=== PATIENT | female | born 1995 | race Caucasian/White ===

== ENCOUNTER 2021-08-21 12:09 | Outpatient (CLI) | payer OTHER, SELFPAY ==
--- NOTE | ~2021-08-21 | US_ITS ---
US OB limited w BPP DATE: 08/21/2021 15:50 INDICATION: decelerations. TECHNIQUE: Real-time imaging and Doppler analysis COMPARISON: None FINDINGS: Live mar intrauterine gestation, fetus in longitudinal lie, vertex presentation. Feta l heart rate of 135 bpm. Anterior placenta. Amniotic fluid index measures 10.6 cm, within lower normal range. (5th percentile CARMEN is 7.3 cm. 95th percentile CARMEN is 23.9 cm.) BIOPHYSICAL PROFILE reported by furniture technician: breathin out of 2 movement: 2 out of 2 tone: 2 out of 2 Amniotic fluid pocket: 2 out of 2 Total score: 8 out of 8 IMPRESSION: Normal biophysical profile score of 8 out of 8 CARMEN measures 10.6 cm, within lower limits of normal Reviewed, dictated and finalized at [facility]. Reviewed, dictated and finalized at [facility]. L [employer]INDOW [employer]CREEN [employer]SEM[employer]ER
--- NOTE | 2021-08-21 12:30 | PC.NURSE ---
Prolong decel noted around 1230 on tracing. Fht's down to the 90's at its lowest point for 2 minutes. Spontaneous return to baseline was noted.
--- NOTE | 2021-08-21 13:00 | PC.NURSE ---
Second prolong decel noted, fht's down to the 110 for 90 seconds with return to baseline.
[2021-08-21 14:12] VITALS: BP 110/79; PULSE 87
[2021-08-21 14:16] VITALS: BP 109/79; PULSE 90
[2021-08-21 14:31] VITALS: BP 113/78; PULSE 86
[2021-08-21 14:46] VITALS: BP 114/68; PULSE 80
[2021-08-21 15:01] VITALS: BP 114/74; PULSE 84
[2021-08-21 16:02] VITALS: BP 113/70; PULSE 94
--- NOTE | 2021-08-21 16:06 | PC.NURSE ---
Addendum entered by Sheila Gould RN 08/21/21 16:11: MD was notified at 1350 Original Note: Dr Canales notified of prolonged decel x2, reactive tracing after decels. Orders for monitoring and US. If CARMEN and BPP WNL may dc home.
--- NOTE | 2021-08-21 16:27 | PC.NURSE ---
Addendum entered by Sheila Gould RN 08/21/21 16:29: at 1513 Original Note: Fht's 130's, reactive. no further decels noted.
== END 2021-08-21 16:02 | disposition home or self-care (01) ==
LOC: ANHOBOP 14:04 → ANHLDR 14:05
PROVIDERS: Visit Provider Obstetrics & Gynecology
DX: O41.8X90 Other specified disorders of amniotic fluid and membranes, unspecified trimester, not applicable or unspecified (principal)
CPT/HCPCS: 59025; 76815; 76819; 84112; 99199

== ENCOUNTER 2021-08-23 10:14 | Inpatient (IN) | payer OTHER, SELFPAY ==
[2021-08-23] VITALS (114 sets, daily range): BP systolic 82–124; BP diastolic 30–87; PULSE 61–128; RESP 18; TEMP 36.3–37.1; O2SAT 92–100; BMI 34.6
--- OUTSIDE RECORDS SUMMARY | 2021-08-23 10:20 | XMS_ITS ---
:1995 Author Care Team Providers Name Role Phone BRODIE SALAZAR MD Primary Care Provider [phone] Allergies Code Code System Name Reaction Severity Status Onset Septra Nausea ? Active ? Medications Name Status Start Date Stop Date ? ? amoxicillin 875 mg tablet Unknown ? Not av ailable TK 1 T PO BID azithromycin 500 mg tablet Completed ? 10/25 bupropion HCl 100 mg tablet Completed ? 04/23 TK 1 T PO BID ciprofloxacin 500 mg tablet Completed ? 06/2016 TK 1 T PO Q 12 H FOR 7 DAYS clindamycin HCl 300 mg capsule Unknown ? N ot available TK ONE C PO TID Cytotec 100 mcg tablet Completed ? 4 Take 2 tablets by oral route as directed for 1 day. Depo-Provera 150 mg/mL intramuscular suspension Unknown ? Not available Inject 1 mL every 3 months by intramuscular route. dicloxacillin 250 mg capsule Completed ? 05/2018 Take 1 capsule every 6 hours by oral route for 7 days. doxycycline hyclate 100 mg capsule Completed ? 02/16/2019 fluconazole 150 mg tablet Completed ? 2017 fluoxetine 10 mg capsule Unknown ? Not germania ilable TK 1 C PO QD fluoxetine 20 mg capsule Unknown ? Not germania ilable TK ONE C PO D fluticasone propionate 50 mcg/actuation nasal spray,suspension U nknown ? Not available SPRAY ONE SPRAY INTO EACH NOSTRIL D hydrocortisone 2.5 % topical ointment Unknown ? Not available hydroxyzine HCl 25 mg tablet Unknown ? Not available TK 1 T PO Q 6 H PRF ITCHING
--- OUTSIDE RECORDS SUMMARY | 2021-08-23 10:20 | XMS_ITS ---
:1995 Author Care Team Providers Name Role Phone [facility] Primary Care Provider Unavailable Allergies Code Code System Name Reaction Severity [...] day. Depo-Provera 150 mg/mL intramuscular suspension Unknown 03/17/2013 Not available Inject 1 mL every 3 months by intramuscular route. dicloxacillin 250 mg capsule Completed ? 05/2018 Take 1 capsule every 6 hours by oral route for 7 days. doxycycline hyclate 100 mg capsule Completed ? 02/16/2019 fluconazole 150 mg tablet Completed ? 2020 TAKE 1 TABLET BY MOUTH EVERY DAY fluoxetine 10 mg capsule Unknown ? Not germania ilable TK 1 C PO QD fluoxetine 20 mg capsule Unknown ? Not germania ilable TK ONE C PO D fluticasone propionate 50 mcg/actuation nasal spray,suspension U nknown ? Not available SPRAY ONE SPRAY INTO EACH NOSTRIL D hydrocortisone 2.5 % topical Unknown ? Not available ointm
[2021-08-23] MEDS: AMPICILLIN 2 GM/NS 100 ML 2 GM/100 ML BAG IVPB (10:45)
[2021-08-23] MEDS: LACTATED RINGERS 1,000 ML 125 ML IV CONT ×2 (10:45→11:48)
[2021-08-23 10:46] LABS: Basophils Percent Auto 0.3 % (0.2-1.2); Eosinophils Percent Auto 0.2 % (0-4.4); Hematocrit 37.1 % (37.0-47.0); Hemoglobin 12.6 g/dL (12.0-15.0); Immature Granulocyte Absolute 0.08 K/mm3 (0.00-0.031); Immature Granulocyte Percent A 0.6 % (0-0.5); Lymphocytes Absolute Auto 2.48 K/mm3 (0.9-3.2); Lymphocytes Percent Auto 20.1 % (18.3-44.2); Mean Corpuscular Hemoglobin 31.3 pg (26-34); Mean Corpuscular Volume 92.1 fl (80-100); Mean Platelet Volume 10.1 fl (7.4-10.4); Monocytes Absolute Auto 0.6 K/mm3 (0.1-0.6); Monocytes Percent Auto 4.9 % (2.6-8.5); Neutrophils Absolute Auto 9.1 K/mm3 (1.3-6.7); Neutrophils Percent Auto 73.9 % (45.5-73.1); Platelet Count Result 312 k/mm3 (150-375); Red Blood Count 4.03 M/mm3 (4.2-5.4); Red Cell Distribution Width 12.4 % (11.5-14.5); White Blood Count 12.3 K/mm3 (4.5-10.0)
--- NOTE | 2021-08-23 11:14 | WPDANESEPPF ---
Anes - Initial Pre Proc Eval Date/Time: 08/23/21 11:14 Surgeon: Raymond Canales MD Pre Op Diagnosis: labor Patient Data Age: 26 Gender: F Height: Weight: Last Vital Signs Pulse 88 08/23/21 11:13 BP 96/69 L 08/23/21 11:13 Pulse Ox 99 08/23/21 11:14 Allergies Allergy/AdvReac Type Severity Reaction Status Date / Time cephalexin Allergy Intermediate Vomiting Verified 08/20/21 10:23 amoxicillin Allergy Unknown VOMITING Verified 08/20/21 10:23 Sulfa (Sulfonamide Allergy Unknown Nausea Verified 08/20/21 10:23 Antibiotics) sulfamethoxazole Allergy Unknown Unknown Verified 08/20/21 10:23 trimethoprim Allergy Unknown Unknown Verified 08/20/21 10:23 Home Medications Medication Instructions Recorded Confirmed Type vitamins-iron fumarate 65 1 tablet PO DAILY 07/13/21 08/10/21 History mg iron-folic acid 1 mg tablet Laboratory Tests 08/23/21 08/23/21 10:39 10:39 WBC 12.3 K/mm3 H K/mm3 (4.5-10.0) RBC 4.03 M/mm3 L M/mm3 (4.2-5.4) Hgb 12.6 g/dL g/dL (12.0-15.0) Hct 37.1 % % (37.0-47.0) MCV 92.1 fl fl (80-100) MCH 31.3 pg pg (26-34) MCHC 34.0 g/dl g/dl (32-36) RDW 12.4 % % (11.5-14.5) Plt Count 312 k/mm3 k/mm3 (150-375) MPV 10.1 fl fl (7.4-10.4) Immature Gran % (Auto) 0.6 % H % (0-0.5) Neut % (Auto) 73.9 % H % (45.5-73.1) Lymph % (Auto) 20.1 % % (18.3-44.2) [place] % (Auto) 4.9 % % (2.6-8.5) Eos % (Auto) 0.2 % % (0-4.4) Baso % (Auto) 0.3 % % (0.2-1.2) Lymph # (Auto) 2.48 K/mm3 K/mm3 (0.9-3.2) [place] # (Auto) 0.6 K/mm3 K/mm3 (0.1-0.6) Eos # (Auto) 0.0 K/mm3 K/mm3 (0-0.3) Baso # (Auto) 0.0 K/mm3 K/mm3 (0.0-0.1) Abs Immat Gran (auto) 0.08 K/mm3 H K/mm3 (0.00-0.031) Absolute Neuts (auto) 9.1 K/mm3 H K/mm3 (1.3-6.7) Absolute Nucleated RBC 0.0 K/mm3 K/mm3 (0.0-0.012) Nucleated RBC % 0.0 % % (0.0-0.2) RPR Pending Patient hx anesthesia problems: none Family hx anesthesia problems: none Results Review: All pre-operative results and documents have been reviewed as part of the pre-operative evaluation. [facility] Past Medical History Medical History Encounter for insertion of mirena IUD 10/06/13 Encounter for IUD removal 10/21/16 Nexplanon insertion 08/10/18 07/23/10 Nexplanon removal 12/09/18 07/01/12 Surgical History Surgical History History of biopsy 05/23/17 vulvar bx--polypoid molluscum contagiosum History of tonsillectomy Family History Family History Mother Hypertension Lupus erythematosus Celiac disease Social History Social History Substance use: never Spiritual care concerns: No Anes - Eval Final PreProcedure Day of Procedure 08/23/21 11:14 Patient weight: overweight ASA classification: II Anesthesia type and monitoring: regional epidural and standard monitoring Results Review: All pre-operative results and documents have been reviewed as part of the pre-operative evaluation. Informed Consent: The patient's anesthetic plan and its attendant risks and benefits were discussed with the patient/family/POA. Questions were solicited and answers provided to the satisfaction of the patient/family/POA.
[2021-08-23 11:40] LABS: Rapid Plasma Reagin Non-Reactive (NonReactive)
--- NOTE | 2021-08-23 11:53 | LDADM ---
This patient, Margo Vieira, was admitted to Labor/Delivery/Recovery 107 on 08/23/21 at 10:14. Plans for labor, pain management and were discussed with patient. Patient/family oriented to hospital policies and general routines including ID bracelet, bed and alarms, visiting hours, pain management, procedures, bathroom and other care routines, personal items, smoking policy, room service/diet and guest tray routines, infant security routines, and visiting hours. Patient/Family are encouraged to report perceived risks to care and to ask questions if they do not understand what they are told or what they should do. See OBIX for further documentation.
[2021-08-23] MEDS: AMPICILLIN 1 GM/NS 50 ML 1 GM/50 ML BAG IVPB (14:42)
[2021-08-23] MEDS: OXYTOCIN 30 UNITS/NS 500 ML 30 UNITS/500 ML BAG IV CONT (14:43)
--- NOTE | 2021-08-23 16:44 | WPDOBADMIT ---
Obstetrics - Admit Note Admission Note: record reviewed. No pertinent additions to the history and/or any subsequent changes in the physical findings that are not consistent with the expected course of the were found. Additions to the history and/or subsequent changes in the physical findings follow. None.
--- NOTE | 2021-08-23 16:44 | WPDHPUPDATE1 ---
History and Physical Update Update Date/Time: 08/23/21 16:44 History and Physical has been reviewed, including an updated exam of the patient. There are NO changes in the patient's condition. Risks, benefits, and alternatives have been discussed and questions answered. Patient agrees to proceed with procedure.
--- NOTE | 2021-08-23 16:45 | PM.OBPRVD ---
OB - Delivery Note Procedure Events: Positive Group B Strep (GBS) Induction method: None Delivery augmentation: Pitocin Delivery monitor: External FHT and External Uterine Route of delivery: Episiotomy description: None Laceration Description: None Specimen: No Quantitative Blood Loss (ml): 350 Disposition: Floor Narrative: Her draped usual manner for this procedure. Maternal expulsive efforts delivered vertex. The right arm also delivered prior to the left shoulder. But once the right arm did deliver the left shoulder delivered without difficulty. Rest of baby was delivered cord clamped cut placenta delivered spontaneously. Cervix vagina vulva were inspected no lacerations or tears. Uterus was well contracted. At this point procedure was considered terminated. [place] Baby Weeks of gestation at delivery: 38 gender: Male Weight (pounds): 7 Weight (ounces): 14 presentation: compound ( Right arm delivered along with vertex.) Placenta delivery description: Spontaneous Cord Vessel Description: 3 Vessels score one minute: 8 score five minutes: 9 AMG Delivery Billing Delivery Delivery: Delivery Charge
[2021-08-23] MEDS: OXYTOCIN 30 UNITS/NS 500 ML 30 UNITS/500 ML BAG 125 UNITS IV CONT (17:16)
--- NOTE | 2021-08-23 19:08 | OBPPTRN ---
Patient transferred to post room #291 via W/C. Support person present. Oriented to unit, room, information board, rooming in, admission packet and security measures. Patient verbalizes understanding.
[2021-08-23] MEDS: SIMETHICONE 80 MG TAB.CHEW PO (20:34)
[2021-08-24 00:02] VITALS: BP 102/62; PULSE 75; RESP 18; TEMP 36.8; O2SAT 100
[2021-08-24] MEDS: IBUPROFEN 600 MG TABLET PO ×2 (03:37→17:02)
[2021-08-24 03:50] VITALS: BP 103/70; PULSE 83; RESP 16; TEMP 36.7
[2021-08-24 04:09] LABS: Hematocrit 33.8 % (37.0-47.0); Hemoglobin 11.2 g/dL (12.0-15.0)
[2021-08-24] MEDS: MULTIVIT/MIN/PREN/FOL AC/IRON TABLET 1 TAB PO (08:44)
[2021-08-24] MEDS: WITCH HAZEL 40 PADS 1 PAD TOPICAL (08:44)
[2021-08-24 08:45] VITALS: BP 108/70; PULSE 86; RESP 18; TEMP 36.5; O2SAT 100
[2021-08-24 12:02] VITALS: BP 108/66; PULSE 86; RESP 18; TEMP 36.9; O2SAT 99
--- NOTE | 2021-08-24 12:35 | P.DS_ITS ---
DS: Admitting Diagnosis Discharge Date 08/24/2021 Admitting Diagnosis OB - DS: Summary OB Procedures : None OB Procedures Intrapartum: Spontaneous Vag Delivery OB Procedures: : None Time Spent with Patient Time attestation: Total time spent providing and/or coordinating discharge services: DS: Data Data Completed and Pending Labs on day of discharge: Labs from last 24 hours 08/24/21 03:51 Hgb 11.2 L Hct 33.8 L Discharge Plan Discharge Discharging Clinician: Raymond Canales Anticipated Discharge Date/Time: 08/24/21 12:36 Patient Disposition: Home, Self-Care Activity: as tolerated Diet: as tolerated Patient Instructions: Antibiotic Form Stand Alone Forms: General Discharge Information Follow-up/Referrals: Raymond Canales MD [Physician] - 3 Weeks Discharge Medications: New ibuprofen 600 mg Tablet 600 mg PO Q6H PRN (Reason: Cramping) Qty: 30 RF: 0 Continued vit-iron fum-folic ac 65 mg iron- 1 mg tablet 1 tablet PO DAILY RF: 0 Date of admission: 08/23/21 10:14 Primary Care Provider: PHYSICIAN,COMMISSION AGENT [employer] Admitting Provider: Raymond Canales Attending physician on admission: Raymond Canales Condition: Stable
--- NOTE | 2021-08-24 13:08 | PC.NURSE ---
0840 - Introductions were made and patient consulted to assess needs related to . Mother led conversation with her experience with feeding baby so far. Mother works well with her infant. Reviewed good handwashing when working with , breast, nipples and how to protect the nipples with a deep latch. Primary RN here to take for a doctor assessment in the nursery. [id number] Mother continue the start of an earlier conversation. RN encouraged the benefits of skin to skin, responding to feeding cues for on demand feedings, frequencies of feeding to be 8-12 times in 24 hours (approximately 2-3 hours), duration of feedings, milk production, intake/output feeding sheet and signs of adequate intake. Discussed stimulating infant with skin to skin, hand expressing colostrum, touch and talking to infant to encourage eating at the breast. Reviewed positioning and alignment, supporting breast, off-centered (asymmetrical latch) and leading with the chin with big open wide gape. Infant latched optimally to the right breast in football position without discomfort to mother. Education given to mother of how to visualize suck/swallow ratios and drinking at the breast. was not able to maintain latch without discomfort to mother. Nipple care, comfort and healing with warm, wet washcloth to rinse breast and leave to air-dry. Resources used to facilitate learning were used from the visual handout/ tool/mom and baby guide. Mother voiced understanding responding to feeding cues, may need to stimulating approximately 2-3 hours from the start of the last feeding, calling for assistance if the infant does not latch or there discomfort . Reported to primary RN.
[2021-08-24] MEDS: TETANUS,DIPHTHERIA,AC PERTUSSIS ADULT (0.5 ML) BOOSTRIX IM (14:05)
--- NOTE | 2021-08-24 17:00 | PC.NURSE ---
Patient received instructions to view the discharge video Mother & Baby Care, The First Two Weeks . Patient was given the opportunity and encouraged to ask questions. Patient verbalized understanding of information shared and has been given the mother/baby guide for home reference.
[2021-08-27 11:48] VITALS: BP 110/72; PULSE 75; RESP 20; TEMP 37.1; O2SAT 99
== END 2021-08-24 19:00 | disposition home or self-care (01) | DRG 560 ==
LOC: ANHLDR 10:17 → ANHOB2 19:24
PROVIDERS: Admitting Provider Obstetrics & Gynecology; Visit Provider Obstetrics & Gynecology
DX: O99.824 Streptococcus B carrier state complicating childbirth (principal); Z37.0 Single live birth; Z3A.38 38 weeks gestation of pregnancy; O32.6XX0 Maternal care for compound presentation, not applicable or unspecified; O36.8330 Maternal care for abnormalities of the fetal heart rate or rhythm, third trimester, not applicable or unspecified
CPT/HCPCS: 36415; 85014; 85018; 85025; 86592; 86850; 86900; 86901; 90715; A9270; J0290; J2590; J2795; J7120

== ENCOUNTER 2021-08-27 13:03 | Outpatient (RCR) | payer OTHER, SELFPAY ==
--- NOTE | 2021-08-27 14:05 | PC.NURSE ---
Addendum entered by Kaity Schulte RN 08/27/21 14:30: Mother received a diagnosis of mastitis in the right breast yesterday. She has an antibiotic that needs to be filled and RN instructed her to start taking the medication. Mother voiced understanding of when to call her provider or the ICP. Mother plans on , then pumping the right breast to empty the milk supply along with massage during . A follow-up phone call will be made 08/28/2021. Original Note: 1216 - 1300 Consulted with patient to assess needs related to . Mother led conversation with her experience with feeding baby so far. Mother works well with her infant. Significant history related to is mother's anxiety and bilateral nipple piercing. Mother denies any mental health concerns at this time and states she is coping well with exception to the first night at home. She has recovered from frustration and tears. Reviewed baby blues vs PPD. Mother voiced understanding of when to call for assistance. Reviewed good handwashing when working with , breast, nipples and how to protect the nipples with a deep latch. Encouraged understanding the benefits of skin to skin, responding to feeding cues, frequencies of feeding 8-12 times in 24 hours (approximately 2-3 hours), duration of feedings, milk production, intake/output feeding sheet and signs of adequate intake. Discussed stimulating with skin to skin, hand expressing colostrum, touch and talking to to encourage eating at the breast. Reviewed positioning and alignment, supporting breast, off-centered (asymmetrical latch) and leading with the chin with big open wide gape. Infant latched optimally to the left breast in cross cradle position. Infant latched optimally on the right breast in football position after a maternal position adjustment. did not maintain latch. Due to past nipple piercing it is suspected that there may be some damage. Ducts appear to be patent but after a few min of sucking stops . Encouraged mother to start with the right breast. Education given to mother of how to visualize suck/swallow ratios and drinking at the breast. was able to maintain latch without discomfort to mother. Nipple care, comfort and healing with warm, wet washcloth to rinse breast and leave to air-dry. Colostrum may be left on nipples to dry but have clean hands when touching the nipple/breast. Resources used to facilitate learning were used from the visual latch handout/mom and baby guide. Mother voiced understanding responding to feeding cues, may need to stimulating infant approximately 2-3 hours from the start of the last feeding, and resources provided on the website, outpatient and weigh-in Friday group.
== END 2021-11-25 23:59 | disposition home or self-care (01) ==
LOC: ANHOBOP 13:03
PROVIDERS: Visit Provider Pediatrics
DX: Z39.1 Encounter for care and examination of lactating mother (principal)
CPT/HCPCS: 99212; G0463

== ENCOUNTER 2023-05-26 12:55 | Outpatient (CLI) | payer OTHER, SELFPAY ==
[2023-05-26 13:11] LABS: Hematocrit 39.2 % (37.0-47.0); Hemoglobin 12.9 g/dL (12.0-15.0); Mean Corpuscular HGB Conc 32.9 g/dl (32-36); Mean Corpuscular Hemoglobin 30.4 pg (26-34); Mean Corpuscular Volume 92.2 fl (80-100); Mean Platelet Volume 9.8 fl (7.4-10.4); Platelet Count Result 227 k/mm3 (150-375); Red Blood Count 4.25 M/mm3 (4.2-5.4); Red Cell Distribution Width 11.8 % (11.5-14.5); White Blood Count 3.7 K/mm3 (4.5-10.0)
== END 2023-05-26 12:56 | disposition home or self-care (01) ==
LOC: ANHSURGERY 13:01
PROVIDERS: Visit Provider Obstetrics & Gynecology
DX: Z01.818 Encounter for other preprocedural examination (principal)
CPT/HCPCS: 36415; 85027

== ENCOUNTER 2023-05-29 01:20 | Day surgery (SDC) | payer OTHER, SELFPAY ==
[2023-05-22 16:47] VITALS: BMI 28.1
--- NOTE | 2023-05-22 17:20 | PC.NURSE ---
Report to the Outpatient Waiting Room, entrance under the green pavilion located off [facility], at 0615 on 05-29-23. Planned Procedure Time: 0815. Time changes happen often and if your time is changed the preop area will call you the afternoon before. - You and your visitor will be asked to self-screen and do not enter if you have any COVID symptoms. - A mask is optional within the hospital at this time. Patients may have clear liquids (water, carbonated beverages, clear teas, apple juice) until 3 hours prior to surgery with a maximum of 20 ounces. 0515 - No food from midnight until time of surgery - Infants may have breast milk until 4 hours before surgery, formula 6 hours prior to surgery. - Children will be allowed to drink immediately following surgery. If applicable, please bring a bottle or sippy cup to assist with drinking. Juice, water, soda, and popsicles are readily available. For infants on formula, please bring formula the day of surgery. Pacifiers are allowed. Take the following medications with a SIP of water the morning of surgery: None DO NOT STOP ANY OF YOUR OTHER PRESCRIPTION MEDICATIONS PRIOR TO SURGERY ?EXCEPT THE FOLLOWING Medications to discontinue per physician: Ibuprofen Date to take last dose: Per Dr. Canales Please no make-up, nail slovenian, hairspray, perfume, deodorant, or body powder the day of surgery. No jewelry (including any body piercings) or valuables the day of surgery, leave them at home. Please take a shower or bath the night before, or the morning of, surgery with an antibacterial soap. Wear comfortable, loose fitting clothing. Children are encouraged to wear pajamas. - Jewelry must be removed prior to entering the operating room. Rings and piercings that are not removed may be cut off. - The hospital will not accept responsibility for valuables. - Please leave all valuables, including medications, at home the day of surgery. If you are going home after surgery, a licensed service car driver must drive you home. - NO public transportation without another adult if you receive anesthesia. - We recommend that an adult stay with you for 24 hours following discharge. - We also recommend that you do not drive, make important decision, drink alcoholic beverages, or take any drugs that were not prescribed by your health care provider for at least 24 hours after your discharge time. For Pediatric surgeries, we recommend two adults accompany the child home. Follow any additional instructions given to you from your surgeon. If you or anyone in your household have experienced Covid symptoms in the past week, please notify your surgeon or the nurse liaison at the phone number below for possible testing. Telephone instructions given to Margo Vieira and asked if any additional questions and then verbalized understanding. Patient advised to call surgeon office or pre surgery nurse liaison [phone] if any additional questions.
--- NOTE | 2023-05-27 16:04 | PM.IMHP ---
H&P: HPI History of Present Illness Date/Time: 05/27/23 16:04 28-year-old female 2 para 2001 presents for sterilization procedure. We have discussed the permanence failure rate increased risk of ectopic and regret. Patient states good understanding and desires to proceed with bilateral salpingectomy. Chief Complaint: Desires sterilization Review of Systems Review of Systems: All systems reviewed & are unremarkable except as noted in HPI and below PMFSH Past Medical History Medical History Anxiety and depression Arthritis Consultation for female sterilization Encounter for insertion of mirena IUD 10/06/13 Encounter for IUD removal 10/21/16 Nexplanon insertion 08/10/18 07/23/10 Nexplanon removal 12/09/18 07/01/12 Surgical History Surgical History History of biopsy 05/23/17 vulvar bx--polypoid molluscum contagiosum History of tonsillectomy Family History Family History Mother Hypertension Lupus erythematosus Celiac disease Social History Social History Smoking packs per day: 0.5 Smoking cigarettes per day: 10.0 Years smoked: 6 Smoking pack-years: 3.00 Smoking status: Former smoker Tobacco type: cigarettes and e-cigarettes/vaping Second hand tobacco smoke exposure: No Smoking end date: 06/23/16 Additional smoking assessment comments: sometimes vapes currently Alcohol intake: never Substance use: former Substance use type: former substance user and other Other substance usage details: benzos Lack of Transportation: No Lack of Food: Never True Current Housing: I Have Housing Concerned About Future Housing: No Difficulty Paying Gas/Electric Bills: No Difficulty Paying for Meds: No Currently Unemployed: YES Education: Associate Degree Difficulty w/ Childcare or Family Care: YES Living arrangements: with family Occupation/Education: other Additional occupation/education comments: stay at home mom Gender identity (if verbalized by the patient): Female Sexual Orientation (if Verbalized by the Patient): Straight or Heterosexual Spiritual care concerns: No Meds Home Medications and Allergies Home Medications Medication Instructions Recorded Confirmed Type ibuprofen 200 mg tablet 400 mg PO Q4-6H PRN Pain 05/22/23 05/22/23 History Allergies Allergy/AdvReac Type Severity Reaction Status Date / Time cephalexin Allergy Intermediate Vomiting Verified 05/22/23 16:44 amoxicillin Allergy Unknown VOMITING Verified 05/22/23 16:44 Sulfa (Sulfonamide Allergy Unknown Nausea Verified 05/22/23 16:44 Antibiotics) sulfamethoxazole Allergy Unknown Unknown Verified 05/22/23 16:44 trimethoprim Allergy Unknown Unknown Verified 05/22/23 16:44 Exam Const: General: cooperative and healthy appearing Resp: Effort & Inspection: normal respiratory effort Auscultation: clear to auscultation bilaterally Cardio: Rate: regular rate Rhythm: regular rhythm GI: Inspection: normal to inspection Auscultation: normal bowel sounds : External Female Exam: normal external appearance Speculum Exam - Vagina: normal appearance of the vagina Speculum Exam - Cervix: normal appearance of the cervix Bimanual exam- vagina & uterus: normal bimanual exam Bimanual Exam- Adnexa, other: normal adnexae Assessment and Plan Assessment and plan (1) Encounter for sterilization education: Code(s): Z30.09 - Encounter for other general counseling and advice on contraception Status: Acute Assessment and Plan: proceed with bilateral salpingectomy laparoscopically.
[2023-05-29] VITALS (7 sets, daily range): BP systolic 88–108; BP diastolic 47–68; PULSE 54–85; RESP 13–18; TEMP 36.3–36.4; O2SAT 98–100
[2023-05-29] MEDS: ACETAMINOPHEN 500 MG TABLET 1000 MG PO (06:29)
[2023-05-29] MEDS: SCOPOLAMINE 1.5 MG PATCH TRANSDERM (06:30)
[2023-05-29] MEDS: LACTATED RINGERS 1,000 ML 30 ML IV CONT (06:30)
[2023-05-29] MEDS: KETOROLAC 15 MG/ML VIAL (*BKC) IV PUSH (06:30)
--- NOTE | 2023-05-29 06:58 | WPDANESEPPF ---
Anes - Initial Pre Proc Eval Procedure: Operation Date: 05/29/23 08:15 Proposed Procedures p Laparoscopic Bilateral Salpingectomy - Raymond Canales MD Date/Time: 05/29/23 06:58 Surgeon: Raymond Canales MD Pre Op Diagnosis: desired sterilization Patient Data Age: 28 Gender: F Height: 1.52 m Weight: 65.32 kg Allergies Allergy/AdvReac Type Severity Reaction Status Date / Time cephalexin Allergy Intermediate Vomiting Verified 05/22/23 16:44 amoxicillin Allergy Unknown VOMITING Verified 05/22/23 16:44 Sulfa (Sulfonamide Allergy Unknown Nausea Verified 05/22/23 16:44 Antibiotics) sulfamethoxazole Allergy Unknown Unknown Verified 05/22/23 16:44 trimethoprim Allergy Unknown Unknown Verified 05/22/23 16:44 Home Medications Medication Instructions Recorded Confirmed Type ibuprofen 200 mg tablet 400 mg PO Q4-6H PRN Pain 05/22/23 05/22/23 History Patient hx anesthesia problems: none Family hx anesthesia problems: none Results Review: All pre-operative results and documents have been reviewed as part of the pre-operative evaluation. [facility] Past Medical History Medical History Anxiety and depression Arthritis Consultation for female sterilization Encounter for insertion of mirena IUD 10/06/13 Encounter for IUD removal 10/21/16 Nexplanon insertion 08/10/18 07/23/10 Nexplanon removal 12/09/18 07/01/12 Surgical History Surgical History History of biopsy 05/23/17 vulvar bx--polypoid molluscum contagiosum History of tonsillectomy Family History Family History Mother Hypertension Lupus erythematosus Celiac disease Social History Social History Smoking packs per day: 0.5 Smoking cigarettes per day: 10.0 Years smoked: 6 Smoking pack-years: 3.00 Smoking status: Former smoker Tobacco type: cigarettes and e-cigarettes/vaping Second hand tobacco smoke exposure: No Smoking end date: 06/23/16 Additional smoking assessment comments: sometimes vapes currently Alcohol intake: never Substance use: former Substance use type: former substance user and other Other substance usage details: benzos Lack of Transportation: No Lack of Food: Never True Current Housing: I Have Housing Concerned About Future Housing: No Difficulty Paying Gas/Electric Bills: No Difficulty Paying for Meds: No Currently Unemployed: YES Education: Associate Degree Difficulty w/ Childcare or Family Care: YES Living arrangements: with family Occupation/Education: other Additional occupation/education comments: stay at home mom Gender identity (if verbalized by the patient): Female Sexual Orientation (if Verbalized by the Patient): Straight or Heterosexual Spiritual care concerns: No Anes - Eval Final PreProcedure Day of Procedure 05/29/23 06:58 Patient weight: overweight Heart: regular rate and rhythm Lungs: clear to auscultation Airway: Mallampati scale class II Neurological: alert and oriented Last oral intake: >/= 8 hours ASA classification: II Emergent: no Anesthetic plan: proceed Anesthesia type and monitoring: general ETT and standard monitoring Results Review: All pre-operative results and documents have been reviewed as part of the pre-operative evaluation. Informed Consent: The patient's anesthetic plan and its attendant risks and benefits were discussed with the patient/family/POA. Questions were solicited and answers provided to the satisfaction of the patient/family/POA.
--- NOTE | 2023-05-29 07:21 | WPDHPUPDATE1 ---
History and Physical Update Update Date/Time: 05/29/23 07:21 History and Physical has been reviewed, including an updated exam of the patient. There are NO changes in the patient's condition. Risks, benefits, and alternatives have been discussed and questions answered. Patient agrees to proceed with procedure.
--- NOTE | 2023-05-29 11:18 | W.PM.PROC2 ---
Procedure Note - Detailed Date of Procedure 05/29/23 Pre-op Diagnosis desired sterilization Post-op Diagnosis Same Procedure Performed Laparoscopic bilateral salpingectomy Surgeon Raymond Canales MD Anesthesia General Findings Uterus tubes ovaries without abnormality Description of Procedure Patient prepped and draped in usual manner for this procedure. Trocar sites were placed under direct visualization. Using the Harmonic scalpel to mesial salpinx were cauterized and cut and tubes removed without difficulty. There was no bleeding no evidence of pathology throughout the uterus at this point the procedure was considered terminated. Incisions approximated using 4-0 Monocryl the patient was sent to recovery room in stable condition. Estimated Blood Loss -10.0 Urine Output -100.0 Drains No Packing No Pathology Yes Complications No immediate complications Condition Stable Disposition PACU [facility] Billing Surgery - Charge Forward: Surgery Billing
== END 2023-05-29 10:20 | disposition home or self-care (01) ==
PROVIDERS: Visit Provider Obstetrics & Gynecology
PROC: (CPT 49320; principal; 2023-05-29 08:15)
DX: Z30.2 Encounter for sterilization (principal); F17.290 Nicotine dependence, other tobacco product, uncomplicated
CPT/HCPCS: 58661; 88302; A9270; J1100; J1885; J2250; J2405; J2704; J3010; J7120

== ENCOUNTER 2025-06-11 09:05 | Emergency (ER) | payer OTHER, SELFPAY ==
[2025-06-11 09:11] VITALS: BP 110/86; PULSE 71; RESP 16; TEMP 36.4; O2SAT 98
--- NOTE | 2025-06-11 10:02 | ED.WOUNDLAC ---
HPI - Wound/Laceration General Chief Complaint: Wound/Laceration Stated Complaint: R thumb lac Time Seen by Provider: 06/11/25 09:35 History of Present Illness HPI narrative: Patient is a 30-year-old female who presents ER with laceration to the right thumb. She is open a can of green beans when she sliced the pad of her right 1st digit. No numbness or tingling. Bleeding controlled. She was unsure about her last tetanus shot but she had a baby in 2021 and chart review shows she had an updated Tdap at that time. Related Data Allergies Allergy/AdvReac Type Severity Reaction Status Date / Time cephalexin Allergy Intermediate Vomiting Verified 06/11/25 09:17 amoxicillin Allergy Unknown VOMITING Verified 06/11/25 09:17 Sulfa (Sulfonamide Allergy Unknown Nausea Verified 06/11/25 09:17 Antibiotics) sulfamethoxazole Allergy Unknown Unknown Verified 06/11/25 09:17 trimethoprim Allergy Unknown Unknown Verified 06/11/25 09:17 Review of Systems Constitutional: Constitutional: Reports no additional constitutional complaints Musculoskeletal: Musculoskeletal: Reports no additional musculoskeletal complaints Integumentary/Breasts: Skin/Breast: Reports system reviewed and no additional complaints, except as docu Neurologic: Reports system reviewed and no additional complaints, except as documented PMFSH Past Medical History Medical History Consultation for female sterilization Arthritis Anxiety and depression Encounter for IUD removal 10/21/16 Encounter for insertion of mirena IUD 10/06/13 Nexplanon removal 12/09/18 07/01/12 Nexplanon insertion 08/10/18 07/23/10 Surgical History Surgical History H/O bilateral salpingectomy (05/29/23) Laparoscopic bilateral salpingectomy History of biopsy 05/23/17 vulvar bx--polypoid molluscum contagiosum History of tonsillectomy Family History Family History Mother Hypertension Lupus erythematosus Celiac disease Social History Social History Smoking packs per day: 0.5 Smoking cigarettes per day: 10.0 Years smoked: 6 Smoking pack-years: 3.00 Smoking status: Former smoker Tobacco type: cigarettes and e-cigarettes/vaping Second hand tobacco smoke exposure: No Smoking end date: 06/23/16 Additional smoking assessment comments: sometimes vapes currently Alcohol intake: never Substance use: former Substance use type: former substance user and other Other substance usage details: benzos Lack of Transportation: No Lack of Food: Never True Current Housing: I Have Housing Concerned About Future Housing: No Difficulty Paying Gas/Electric Bills: No Difficulty Paying for Meds: No Currently Unemployed: YES Education: Associate Degree Difficulty w/ Childcare or Family Care: YES Living arrangements: with family Occupation/Education: other Additional occupation/education comments: stay at home mom Gender identity (if verbalized by the patient): Female Sexual Orientation (if Verbalized by the Patient): Straight or Heterosexual Spiritual care concerns: No Exam Narrative: GENERAL: Well-appearing, well-nourished, and in no acute distress. HEAD: Normocephalic, atraumatic. ENT: Mucous membranes moist. EXTREMITIES: Normal range of motion. No edema. SKIN: Warm, dry. 2.5 cm v-shaped laceration to the right thumb without exposure of bone. NEURO: No focal deficits. Alert and oriented x3. PSYCH: Normal mood and affect. Course Course Emergency Course: Tolerated laceration repair without issue. Discharge. Vital Signs Vital signs: Vital Signs Temperature 97.6 F 06/11/25 09:11 Pulse Rate 71 06/11/25 09:11 Respiratory Rate 16 06/11/25 09:11 Blood Pressure 110/86 06/11/25 09:11 Pulse Oximetry 98 06/11/25 09:11 Oxygen Delivery Room Air 06/11/25 09:11 Temperature 97.6 F 06/11/25 09:11 Pulse Rate 88 06/11/25 10:40 Respiratory Rate 14 06/11/25 10:40 Blood Pressure 104/77 06/11/25 10:40 Pulse Oximetry 99 06/11/25 10:40 Oxygen Delivery Room Air 06/11/25 09:11 Procedures Laceration Laceration 1: Date: 06/11/25 Time: 11:00 Site: other (thumb) Side (If applicable): right Size (cm): 2.5 Description: flap Depth: simple, single layer Local Anesthetic: lidocaine 1% and with epi Amount of anesthesia used (mL): 1.5 Pre-repair: wound explored, irrigated and deep structures intact ====== Skin Level ====== Skin layer closed with: nylon Size (cm): 5-0 Number of sutures: 4 Technique: simple, interrupted ====== Subcutaneous Layer ====== ====== Muscle Layer ====== ====== Tendon Layer ====== MDM Differential Diagnosis Differential Diagnosis: Bone injury simple laceration, nerve injury, retained foreign body. Discharge Plan Discharge Clinical Impression: Laceration Patient Disposition: Home Condition: Stable Instructions: Care For Your Stitches (ED), Laceration (ED) Additional Instructions: Remove your sutures on June 25. Return the ER if you have fever 100.4? F, your wound is draining pus, you have additional concerns. Patient Language: Upper Sorbian Prescriptions: No Action clindamycin HCl 300 mg capsule 300 mg PO Q6H Qty: 28 6RF Follow-up/Referrals: Robin Herring MD [Physician, Family Practice]
[2025-06-11] MEDS: LIDO 1%/EPINEPHRINE 1:100,000 20 ML VIAL INFILTRATE (10:26)
[2025-06-11 10:40] VITALS: BP 104/77; PULSE 88; RESP 14; O2SAT 99
== END 2025-06-11 11:37 | disposition home or self-care (01) ==
PROVIDERS: Emergency Provider Emergency Medicine
DX: M19.90 Unspecified osteoarthritis, unspecified site (principal); F41.9 Anxiety disorder, unspecified; F32.A Depression, unspecified; F17.290 Nicotine dependence, other tobacco product, uncomplicated; Z90.79 Acquired absence of other genital organ(s); W26.8XXA Contact with other sharp object(s), not elsewhere classified, initial encounter
CPT/HCPCS: 12001; 99282; J2004